=== PATIENT | male | born 1945 | race Caucasian/White ===

== ENCOUNTER 2022-06-04 18:33 | Inpatient (IN) | payer MEDICARE, SELFPAY ==
[2022-06-04] MEDS ORDERED: Piperacillin/Tazobactam 4.5 GM VIAL ONE (18:58)
[2022-06-04 19:18] LABS: #Lymphocytes 0.6 thou/uL (1.20-3.40); #Monocytes 0.8 thou/uL (0.11-0.59); %Basophils 0.1 % (0.0-1.0); %Eosinophils 0.1 % (0.0-10.0); %Lymphocytes 4.3 % (21.0-51.0); %Monocytes 5.3 % (0.0-10.0); %Neutrophils 90.2 % (42.0-75.0); Hemoglobin 16.7 g/dL (14.0-18.0); Mean Corpuscular HGB CONC 33.6 g/dL (32.0-36.0); Mean Corpuscular Hemoglobin 32.7 pg (27.0-31.0); Mean Corpuscular Volume 97.6 fL (78.0-98.0); RBC Distribution Width 14.4 % (11.5-14.5); Red Blood Cell (RBC) Count 5.11 mill/uL (4.70-6.10); White Blood Cell (WBC) Count 14.4 thou/uL (4.8-10.8)
[2022-06-04 19:28] LABS: ALT (SGPT) 18 U/L (8-55); AST (SGOT) 31 U/L (5-34); Albumin 4.4 g/dL (3.4-4.8); Alkaline Phosphatase 77 U/L (40-110); Anion Gap 19 mmol/L (10-20); BUN (Urea Nitrogen) 39 mg/dL (8.4-25.7); Bilirubin, Total 1.1 mg/dL (0.2-1.2); CK (CPK) 1022 U/L (30-200); Calc. Creatinine Clearance 0 mL/min (70-130); Calcium 10.2 mg/dL (7.8-10.44); Carbon Dioxide 18 mmol/L (23-31); Chloride 109 mmol/L (98-107); Estimated GFR 27; Globulin 3.4 g/dL (2.4-3.5); Glucose 177 mg/dL (83-110); Protein, Total 7.8 g/dL (5.8-8.1); Sodium 142 mmol/L (136-145)
[2022-06-04 19:34] LABS: MDiff Complete? YES; Mean Platelet Volume 9.4 fL (7.4-10.4); Platelet Count 98 thou/uL (130-400); Platelet Morphology Comment Appears Decreased; Polychromasia SLIGHT = 2-3 cells (100X) (0-2/hpf)
[2022-06-04 19:35] LABS: Bacteria/HPF None Seen HPF (None Seen); Bilirubin Negative (Negative); Blood, Urine Trace (Negative); Clarity Clear (Clear); Glucose, Urine (Dipstick) Normal (Negative); Ketone, Urine Negative (Negative); Leukocyte Negative Leu/uL (Negative); Nitrite Negative (Negative); Protein, Urine (Dipstick) 50 mg/dL (Neg-Trace); RBC/HPF 21-50 HPF (0-3); Specific Gravity, Urine 1.022 (1.002-1.036); Squamous Epithelial None Seen HPF (0-3); Urobilinogen Normal mg/dL (Less than 2); WBC/HPF 0-3 HPF (0-3); pH, Urine 5.5 (5.0-9.0)
[2022-06-04] MEDS ORDERED: Vancomycin 1 GM/200 ML BAG ONE (19:37)
[2022-06-04 19:56] LABS: CKMB 3.7 ng/mL (0-6.6)
[2022-06-04] MEDS ORDERED: Morphine 4 MG/ML VIAL ONE ×2 (20:30→20:38)
[2022-06-04 22:05] LABS: SARS-CoV-2 NAA Rapid Test Not Detected (NotDetected)
[2022-06-04] MEDS ORDERED: Dextrose 5% in Water 1,000 ML IV PRN (22:19)
[2022-06-04] MEDS ORDERED: Dextrose 50% Abboject 50 ML SYRINGE SLOW IVP PRN (22:19)
[2022-06-04 22:27] LABS: Lactic Acid 2.2 mmol/L (0.5-2.2)
[2022-06-04] MEDS ORDERED: HumaLOG 300 UNITS/3 ML VIAL SC PRN ×2 (22:28)
[2022-06-04] MEDS ORDERED: Vancomycin 1 GM in Premix Bag 1 BAG IVPB SCH (23:00)
[2022-06-04] MEDS: Lactated Ringer's 1,000 ML IV SCH (23:06)
[2022-06-04] MEDS: Morphine 4 MG/ML VIAL SLOW IVP PRN (23:09)
[2022-06-04 23:15] LABS: Hemoglobin A1c 5.4 % (4.0-6.0)
[2022-06-04 23:20] LABS: Cardiac Risk 3.2 (Less than 4.5)
[2022-06-04] MEDS ORDERED: Enoxaparin Sodium 120 MG/0.8 ML SYRINGE SC SCH (23:59)
[2022-06-05] MEDS: Piperacillin/Tazobactam 3.375 GM in Sodium Chloride 0.9% 100 ML IVPB SCH ×3 (00:48→17:15)
[2022-06-05 00:58] LABS: Creatinine, Urine 246.08 mg/dL (63-166)
[2022-06-05] MEDS: HYDROcodone/Acetaminophen 5/325 mg Tablet PO PRN ×3 (01:54→20:29)
[2022-06-05 03:31] LABS: Troponin I 1.755 ng/mL (< 0.028)
[2022-06-05 03:33] LABS: #Lymphocytes 1.1 thou/uL (1.20-3.40); %Eosinophils 0.2 % (0.0-10.0); %Monocytes 6.8 % (0.0-10.0); Hemoglobin 15.3 g/dL (14.0-18.0); Mean Corpuscular HGB CONC 33.8 g/dL (32.0-36.0); Mean Corpuscular Hemoglobin 32.7 pg (27.0-31.0); Mean Corpuscular Volume 96.9 fL (78.0-98.0); Mean Platelet Volume 9.4 fL (7.4-10.4); Platelet Count 81 thou/uL (130-400); RBC Distribution Width 14.2 % (11.5-14.5); Red Blood Cell (RBC) Count 4.67 mill/uL (4.70-6.10); White Blood Cell (WBC) Count 14.1 thou/uL (4.8-10.8)
[2022-06-05 03:46] LABS: Lactic Acid 1.7 mmol/L (0.5-2.2)
[2022-06-05 03:51] LABS: Anion Gap 17 mmol/L (10-20); BUN (Urea Nitrogen) 39 mg/dL (8.4-25.7); CK (CPK) 2367 U/L (30-200); Calc. Creatinine Clearance 51 mL/min (70-130); Calcium 9.3 mg/dL (7.8-10.44); Carbon Dioxide 20 mmol/L (23-31); Chloride 104 mmol/L (98-107); Estimated GFR 32; Glucose 149 mg/dL (83-110); Potassium 3.9 mmol/L (3.5-5.1); Sodium 137 mmol/L (136-145)
[2022-06-05] MEDS ORDERED: Acetaminophen 325 MG TAB ONE (05:48)
[2022-06-05] MEDS: Lactated Ringer's 1,000 ML IV SCH ×4 (05:53→20:30)
[2022-06-05] MEDS: Levothyroxine Sodium 100 MCG TAB PO SCH (05:54)
[2022-06-05 07:24] LABS: Critical Call Chem Troponin I RESULT DECREASING
[2022-06-05] MEDS ORDERED: Vancomycin 2 GM in Premix Bag 1 BAG IVPB SCH (08:00)
[2022-06-05] MEDS ORDERED: Enoxaparin Sodium 120 MG/0.8 ML SYRINGE SC SCH (09:00)
[2022-06-05] MEDS ORDERED: Clopidogrel Bisulfate 75 MG TAB PO SCH (09:00)
[2022-06-05] MEDS ORDERED: Enoxaparin Sodium 40 MG/0.4 ML SYRINGE SC SCH ×2 (09:00)
[2022-06-05] MEDS: Tamsulosin HCl 0.4 MG CAP PO SCH (09:32)
[2022-06-05] MEDS: Clopidogrel Bisulfate 75 MG TAB PO SCH (09:32)
[2022-06-05] MEDS: Aspirin Chewable 81 MG TAB PO SCH (09:32)
[2022-06-05] MEDS ORDERED: Silver Sulfadiazine 50 GM TUBE TOP SCH (10:29)
[2022-06-05] MEDS: Morphine 4 MG/ML VIAL SLOW IVP PRN (10:45)
[2022-06-05] MEDS ORDERED: Senokot 8.6 MG TAB PO PRN (18:53)
[2022-06-05] MEDS: Polyethylene Glycol 3350 17 GM Packet PO SCH (20:30)
[2022-06-05] MEDS ORDERED: VANCOMYCIN 1.25 GM/250 ML BAG 1.25 GM in Premix Bag 1 BAG IVPB SCH (21:00)
[2022-06-06] MEDS: Piperacillin/Tazobactam 3.375 GM in Sodium Chloride 0.9% 100 ML IVPB SCH ×3 (00:06→16:47)
[2022-06-06] MEDS: Lactated Ringer's 1,000 ML IV SCH ×2 (00:11→02:57)
[2022-06-06] MEDS: HYDROcodone/Acetaminophen 5/325 mg Tablet PO PRN (02:58)
[2022-06-06 05:44] LABS: ALT (SGPT) 26 U/L (8-55); AST (SGOT) 48 U/L (5-34); Albumin 3.3 g/dL (3.4-4.8); Alkaline Phosphatase 54 U/L (40-110); Anion Gap 12 mmol/L (10-20); BUN (Urea Nitrogen) 29 mg/dL (8.4-25.7); Bilirubin, Total 1.1 mg/dL (0.2-1.2); CK (CPK) 1053 U/L (30-200); Calc. Creatinine Clearance 71 mL/min (70-130); Calcium 8.8 mg/dL (7.8-10.44); Carbon Dioxide 25 mmol/L (23-31); Chloride 108 mmol/L (98-107); Estimated GFR 48; Globulin 2.7 g/dL (2.4-3.5); Glucose 105 mg/dL (83-110); Sodium 141 mmol/L (136-145)
[2022-06-06] MEDS: Levothyroxine Sodium 100 MCG TAB PO SCH (06:45)
[2022-06-06 06:59] LABS: #Eosinphils 0.1 thou/uL (0.0-0.7); #Lymphocytes 1.3 thou/uL (1.20-3.40); #Monocytes 0.7 thou/uL (0.11-0.59); #Neutrophils 8.6 thou/uL (1.40-6.50); %Basophils 0.4 % (0.0-1.0); %Eosinophils 1.1 % (0.0-10.0); %Lymphocytes 12.3 % (21.0-51.0); %Monocytes 6.6 % (0.0-10.0); %Neutrophils 79.6 % (42.0-75.0); Hemoglobin 14.4 g/dL (14.0-18.0); Mean Corpuscular HGB CONC 33.5 g/dL (32.0-36.0); Mean Corpuscular Volume 98.4 fL (78.0-98.0); Mean Platelet Volume 9.8 fL (7.4-10.4); Platelet Count 70 thou/uL (130-400); RBC Distribution Width 14.2 % (11.5-14.5); Red Blood Cell (RBC) Count 4.36 mill/uL (4.70-6.10); White Blood Cell (WBC) Count 10.8 thou/uL (4.8-10.8)
[2022-06-06] MEDS ORDERED: Lactated Ringer's 1,000 ML IV SCH (08:00)
[2022-06-06] MEDS ORDERED: Ondansetron ODT 4 MG TAB SL PRN (08:01)
[2022-06-06] MEDS ORDERED: Carvedilol 3.125 MG TAB PO SCH ×2 (09:00→09:15)
[2022-06-06] MEDS: Aspirin Chewable 81 MG TAB PO SCH (10:41)
[2022-06-06 10:42] LABS: PTT 38.7 sec (22.9-36.1)
[2022-06-06] MEDS: Tamsulosin HCl 0.4 MG CAP PO SCH (10:42)
[2022-06-06] MEDS: Clopidogrel Bisulfate 75 MG TAB PO SCH (10:42)
[2022-06-06] MEDS: Polyethylene Glycol 3350 17 GM Packet PO SCH ×2 (10:42→21:21)
[2022-06-06 10:43] LABS: INR-International Normal Ratio 1.1; Prothrombin Time 14.5 sec (12.0-14.7)
[2022-06-06] MEDS: Silver Sulfadiazine 50 GM JAR TP SCH (10:43)
[2022-06-06] MEDS: Carvedilol 3.125 MG TAB PO SCH (16:46)
[2022-06-06] MEDS: Atorvastatin Calcium 40 MG TAB PO SCH (21:19)
[2022-06-07 04:54] LABS: ALT (SGPT) 23 U/L (8-55); AST (SGOT) 28 U/L (5-34); Albumin 3.4 g/dL (3.4-4.8); Alkaline Phosphatase 52 U/L (40-110); Anion Gap 14 mmol/L (10-20); BUN (Urea Nitrogen) 21 mg/dL (8.4-25.7); Bilirubin, Total 0.8 mg/dL (0.2-1.2); CK (CPK) 353 U/L (30-200); Calc. Creatinine Clearance 83 mL/min (70-130); Calcium 9.2 mg/dL (7.8-10.44); Carbon Dioxide 23 mmol/L (23-31); Chloride 105 mmol/L (98-107); Estimated GFR 56; Glucose 106 mg/dL (83-110); Potassium 4.1 mmol/L (3.5-5.1); Protein, Total 6.4 g/dL (5.8-8.1); Sodium 138 mmol/L (136-145)
[2022-06-07] MEDS: Levothyroxine Sodium 100 MCG TAB PO SCH (04:57)
[2022-06-07 04:58] LABS: #Eosinphils 0.2 thou/uL (0.0-0.7); #Lymphocytes 1.4 thou/uL (1.20-3.40); #Monocytes 0.8 thou/uL (0.11-0.59); #Neutrophils 7.9 thou/uL (1.40-6.50); %Basophils 0.3 % (0.0-1.0); %Eosinophils 1.9 % (0.0-10.0); %Lymphocytes 13.2 % (21.0-51.0); %Monocytes 8.1 % (0.0-10.0); %Neutrophils 76.5 % (42.0-75.0); Hemoglobin 15.3 g/dL (14.0-18.0); Mean Corpuscular HGB CONC 32.7 g/dL (32.0-36.0); Mean Corpuscular Hemoglobin 32.4 pg (27.0-31.0); Mean Corpuscular Volume 99.3 fL (78.0-98.0); Mean Platelet Volume 9.9 fL (7.4-10.4); Platelet Count 78 thou/uL (130-400); RBC Distribution Width 14.3 % (11.5-14.5); Red Blood Cell (RBC) Count 4.73 mill/uL (4.70-6.10); White Blood Cell (WBC) Count 10.3 thou/uL (4.8-10.8)
[2022-06-07] MEDS ORDERED: Bisacodyl 10 MG SUPP PR PRN (08:09)
[2022-06-07 08:42] VITALS: BMI 38.7
[2022-06-07] MEDS: Clopidogrel Bisulfate 75 MG TAB PO SCH (09:26)
[2022-06-07] MEDS: Carvedilol 3.125 MG TAB PO SCH ×2 (09:26→18:28)
[2022-06-07] MEDS: Aspirin Chewable 81 MG TAB PO SCH (09:26)
[2022-06-07] MEDS: Tamsulosin HCl 0.4 MG CAP PO SCH (09:26)
[2022-06-07] MEDS: Polyethylene Glycol 3350 17 GM Packet PO SCH ×2 (09:27→20:41)
[2022-06-07] MEDS: Senokot S 8.6-50 MG TAB PO SCH ×2 (10:47→20:41)
[2022-06-07] MEDS: Silver Sulfadiazine 50 GM JAR TP SCH (10:48)
[2022-06-07 13:10] LABS: Bacteria/HPF None Seen HPF (None Seen); Bilirubin Negative (Negative); Blood, Urine 3+ (Negative); Clarity Clear (Clear); Glucose, Urine (Dipstick) Normal (Negative); Ketone, Urine Negative (Negative); Leukocyte Negative Leu/uL (Negative); Nitrite Negative (Negative); Protein, Urine (Dipstick) Negative (Neg-Trace); RBC/HPF 21-50 HPF (0-3); Specific Gravity, Urine 1.013 (1.002-1.036); Squamous Epithelial 0-3 HPF (0-3); WBC/HPF 0-3 HPF (0-3)
[2022-06-07] MEDS: Atorvastatin Calcium 40 MG TAB PO SCH (20:41)
[2022-06-08 05:01] LABS: #Eosinphils 0.2 thou/uL (0.0-0.7); #Lymphocytes 1.8 thou/uL (1.20-3.40); #Monocytes 0.8 thou/uL (0.11-0.59); #Neutrophils 6.4 thou/uL (1.40-6.50); %Basophils 0.4 % (0.0-1.0); %Eosinophils 2.4 % (0.0-10.0); %Lymphocytes 19.3 % (21.0-51.0); %Monocytes 9.1 % (0.0-10.0); %Neutrophils 68.9 % (42.0-75.0); Mean Corpuscular HGB CONC 32.1 g/dL (32.0-36.0); Mean Corpuscular Hemoglobin 31.8 pg (27.0-31.0); Mean Corpuscular Volume 99.2 fL (78.0-98.0); Mean Platelet Volume 9.7 fL (7.4-10.4); Platelet Count 84 thou/uL (130-400); RBC Distribution Width 14.4 % (11.5-14.5); Red Blood Cell (RBC) Count 4.72 mill/uL (4.70-6.10); White Blood Cell (WBC) Count 9.3 thou/uL (4.8-10.8)
[2022-06-08] MEDS: Levothyroxine Sodium 100 MCG TAB PO SCH (05:05)
[2022-06-08 05:16] LABS: ALT (SGPT) 37 U/L (8-55); AST (SGOT) 29 U/L (5-34); Albumin 3.4 g/dL (3.4-4.8); Alkaline Phosphatase 56 U/L (40-110); Anion Gap 13 mmol/L (10-20); BUN (Urea Nitrogen) 25 mg/dL (8.4-25.7); Bilirubin, Total 0.9 mg/dL (0.2-1.2); CK (CPK) 238 U/L (30-200); Calc. Creatinine Clearance 81 mL/min (70-130); Calcium 9.1 mg/dL (7.8-10.44); Carbon Dioxide 25 mmol/L (23-31); Chloride 105 mmol/L (98-107); Estimated GFR 54; Globulin 2.9 g/dL (2.4-3.5); Glucose 99 mg/dL (83-110); Protein, Total 6.3 g/dL (5.8-8.1); Sodium 139 mmol/L (136-145)
[2022-06-08] MEDS: Clopidogrel Bisulfate 75 MG TAB PO SCH (09:28)
[2022-06-08] MEDS: Aspirin Chewable 81 MG TAB PO SCH (09:29)
[2022-06-08] MEDS: Carvedilol 3.125 MG TAB PO SCH (09:29)
[2022-06-08] MEDS: Silver Sulfadiazine 50 GM JAR TP SCH (09:29)
[2022-06-08] MEDS: Polyethylene Glycol 3350 17 GM Packet PO SCH (09:29)
[2022-06-08] MEDS: Tamsulosin HCl 0.4 MG CAP PO SCH (09:29)
[2022-06-08 17:17] VITALS: BP 109/62; TEMP 97.7
== END 2022-06-08 17:40 | disposition home health service (06) | DRG 922 ==
LOC: ERS 18:33 → IMCU/EMU 20:38 → 2NO 06-06 21:07
PROVIDERS: ADMIT Family Medicine; ATTEND Family Medicine
DX: T67.01XA Heatstroke and sunstroke, initial encounter (principal); I21.A1 Myocardial infarction type 2; N17.9 Acute kidney failure, unspecified; M62.82 Rhabdomyolysis; E87.2 Acidosis; Z20.822 Contact with and (suspected) exposure to COVID-19; E78.5 Hyperlipidemia, unspecified; M10.9 Gout, unspecified; E03.9 Hypothyroidism, unspecified; I12.9 Hypertensive chronic kidney disease with stage 1 through stage 4 chronic kidney disease, or unspecified chronic kidney disease; E11.22 Type 2 diabetes mellitus with diabetic chronic kidney disease; D69.6 Thrombocytopenia, unspecified; T22.261A Burn of second degree of right scapular region, initial encounter; N18.31 Chronic kidney disease, stage 3a; T22.221A Burn of second degree of right elbow, initial encounter; Z79.82 Long term (current) use of aspirin; Z79.890 Hormone replacement therapy; Z79.899 Other long term (current) drug therapy; X30.XXXA Exposure to excessive natural heat, initial encounter
CPT/HCPCS: 36415; 36416; 51702; 70450; 71045; 76705; 80048; 80053; 80061; 80307; 81001; 81003; 81015; 82550; 82553; 82570; 83036; 83605; 83880; 84145; 84300; 84443; 84484; 85025; 85060; 85520; 85610; 85730; 87040; 87086; 93005; 93306; 93970; 94760; 96374; 96375; 97139; J1650; J2270; J2543; J3370; J3490; J7120; Q0162; U0002

== ENCOUNTER 2022-06-10 03:09 | Inpatient (IN) | payer MEDICARE ==
[2022-06-10 03:29] VITALS: BMI 38.1
[2022-06-10] MEDS ORDERED: Dextrose 5% in Water 1,000 ML IV PRN (04:33)
[2022-06-10] MEDS ORDERED: Dextrose 50% Abboject 50 ML SYRINGE SLOW IVP PRN (04:33)
[2022-06-10] MEDS ORDERED: HumaLOG 300 UNITS/3 ML VIAL SC PRN ×2 (04:33)
[2022-06-10 04:59] LABS: SARS-CoV-2 NAA Rapid Test DETECTED (NotDetected)
[2022-06-10] MEDS ORDERED: [UNRECOGNIZED DRUG - OTHER] TP PRN (05:16)
[2022-06-10] MEDS: Levothyroxine Sodium 100 MCG TAB PO SCH (06:26)
[2022-06-10] MEDS ORDERED: Cartilage/Collagen/Bor/Hyalur [Joint Health Tablet] PO SCH (09:00)
[2022-06-10] MEDS: Tamsulosin HCl 0.4 MG CAP PO SCH (10:43)
[2022-06-10] MEDS: Clopidogrel Bisulfate 75 MG TAB PO SCH (10:43)
[2022-06-10] MEDS: Aspirin Chewable 81 MG TAB PO SCH (10:43)
[2022-06-10] MEDS: Enoxaparin Sodium 40 MG/0.4 ML SYRINGE SC SCH (10:43)
[2022-06-10] MEDS: Carvedilol 3.125 MG TAB PO SCH ×2 (10:44→16:18)
[2022-06-10] MEDS: Silver Sulfadiazine 50 GM JAR TP SCH (10:44)
[2022-06-10] MEDS ORDERED: Benzonatate 100 MG CAP PO PRN (14:55)
[2022-06-10] MEDS: Acetaminophen 325 MG TAB PO PRN ×2 (16:18→20:21)
[2022-06-10] MEDS: Allopurinol 100 MG TAB PO SCH (20:21)
[2022-06-10] MEDS: Atorvastatin Calcium 40 MG TAB PO SCH (20:21)
[2022-06-10] MEDS: guaiFENesin ER 600 MG TAB PO SCH (23:07)
[2022-06-11] MEDS: Albuterol 200 PUFF (6.7GM INHALER) INH SCH ×6 (03:30→22:31)
[2022-06-11] MEDS ORDERED: Fluticasone Propionate Nasal Spray 16 gm Bottle NASAL SCH ×3 (04:00→09:00)
[2022-06-11] MEDS: Scopolamine 1.5 mg/72 hour Patch TD SCH (04:40)
[2022-06-11 05:36] LABS: #Lymphocytes 0.6 thou/uL (1.20-3.40); #Monocytes 0.8 thou/uL (0.11-0.59); #Neutrophils 6.2 thou/uL (1.40-6.50); %Eosinophils 0.2 % (0.0-10.0); %Lymphocytes 7.6 % (21.0-51.0); %Monocytes 10.6 % (0.0-10.0); %Neutrophils 81.6 % (42.0-75.0); Hemoglobin 15.2 g/dL (14.0-18.0); Mean Corpuscular HGB CONC 33.4 g/dL (32.0-36.0); Mean Corpuscular Hemoglobin 32.9 pg (27.0-31.0); Mean Corpuscular Volume 98.6 fL (78.0-98.0); Mean Platelet Volume 9.1 fL (7.4-10.4); Platelet Count 87 thou/uL (130-400); RBC Distribution Width 14.2 % (11.5-14.5); Red Blood Cell (RBC) Count 4.61 mill/uL (4.70-6.10); White Blood Cell (WBC) Count 7.6 thou/uL (4.8-10.8)
[2022-06-11 05:54] LABS: ALT (SGPT) 102 U/L (8-55); AST (SGOT) 52 U/L (5-34); Albumin 3.6 g/dL (3.4-4.8); Alkaline Phosphatase 62 U/L (40-110); Anion Gap 13 mmol/L (10-20); BUN (Urea Nitrogen) 23 mg/dL (8.4-25.7); Bilirubin, Total 0.7 mg/dL (0.2-1.2); Calc. Creatinine Clearance 86 mL/min (70-130); Calcium 9.1 mg/dL (7.8-10.44); Carbon Dioxide 25 mmol/L (23-31); Chloride 101 mmol/L (98-107); Estimated GFR 60; Globulin 3.2 g/dL (2.4-3.5); Glucose 115 mg/dL (83-110); Protein, Total 6.8 g/dL (5.8-8.1); Sodium 135 mmol/L (136-145)
[2022-06-11] MEDS: Levothyroxine Sodium 100 MCG TAB PO SCH (06:07)
[2022-06-11] MEDS: Enoxaparin Sodium 40 MG/0.4 ML SYRINGE SC SCH (09:32)
[2022-06-11] MEDS: Carvedilol 3.125 MG TAB PO SCH ×2 (09:33→20:03)
[2022-06-11] MEDS: Clopidogrel Bisulfate 75 MG TAB PO SCH (09:33)
[2022-06-11] MEDS: Tamsulosin HCl 0.4 MG CAP PO SCH (09:33)
[2022-06-11] MEDS: Acetaminophen 325 MG TAB PO PRN (09:33)
[2022-06-11] MEDS: Aspirin Chewable 81 MG TAB PO SCH (09:33)
[2022-06-11] MEDS: guaiFENesin ER 600 MG TAB PO SCH ×3 (09:34→20:04)
[2022-06-11] MEDS ORDERED: Dexamethasone 4 MG TAB PO SCH (10:45)
[2022-06-11] MEDS ORDERED: Pharmacy to Dose BARICITINIB IVPB PRN (10:45)
[2022-06-11] MEDS: Silver Sulfadiazine 50 GM JAR TP SCH (10:58)
[2022-06-11] MEDS ORDERED: Furosemide 20 MG/2 ML VIAL SLOW IVP SCH (11:15)
[2022-06-11] MEDS ORDERED: REMDESIVIR 200 MG in Sodium Chloride 0.9% 250 ML 210 ML IV SCH (12:00)
[2022-06-11] MEDS: Allopurinol 100 MG TAB PO SCH (20:03)
[2022-06-11] MEDS: Atorvastatin Calcium 40 MG TAB PO SCH (20:04)
[2022-06-12] MEDS: Albuterol 200 PUFF (6.7GM INHALER) INH SCH ×2 (02:52→06:10)
[2022-06-12] MEDS: Levothyroxine Sodium 100 MCG TAB PO SCH (06:10)
[2022-06-12 07:42] LABS: #Monocytes 0.5 thou/uL (0.11-0.59); #Neutrophils 3.9 thou/uL (1.40-6.50); %Basophils 0.1 % (0.0-1.0); %Eosinophils 0.3 % (0.0-10.0); %Lymphocytes 18.5 % (21.0-51.0); %Monocytes 8.9 % (0.0-10.0); %Neutrophils 72.2 % (42.0-75.0); Hemoglobin 15.4 g/dL (14.0-18.0); Mean Corpuscular HGB CONC 31.5 g/dL (32.0-36.0); Mean Corpuscular Hemoglobin 31.8 pg (27.0-31.0); Mean Platelet Volume 10.7 fL (7.4-10.4); Platelet Count 65 thou/uL (130-400); RBC Distribution Width 14.2 % (11.5-14.5); Red Blood Cell (RBC) Count 4.86 mill/uL (4.70-6.10); White Blood Cell (WBC) Count 5.4 thou/uL (4.8-10.8)
[2022-06-12 08:50] LABS: ALT (SGPT) 71 U/L (8-55); AST (SGOT) 57 U/L (5-34); Albumin 3.4 g/dL (3.4-4.8); Alkaline Phosphatase 53 U/L (40-110); Anion Gap 18 mmol/L (10-20); BUN (Urea Nitrogen) 30 mg/dL (8.4-25.7); Bilirubin, Total 0.4 mg/dL (0.2-1.2); Calc. Creatinine Clearance 81 mL/min (70-130); Calcium 9.1 mg/dL (7.8-10.44); Carbon Dioxide 22 mmol/L (23-31); Chloride 104 mmol/L (98-107); Estimated GFR 56; Globulin 4.2 g/dL (2.4-3.5); Glucose 97 mg/dL (83-110); Potassium 5.6 mmol/L (3.5-5.1); Protein, Total 7.6 g/dL (5.8-8.1); Sodium 138 mmol/L (136-145)
[2022-06-12] MEDS: guaiFENesin ER 600 MG TAB PO SCH ×2 (09:48→20:59)
[2022-06-12] MEDS: Clopidogrel Bisulfate 75 MG TAB PO SCH (09:48)
[2022-06-12] MEDS: Tamsulosin HCl 0.4 MG CAP PO SCH (09:49)
[2022-06-12] MEDS: Carvedilol 3.125 MG TAB PO SCH ×2 (09:49→17:26)
[2022-06-12] MEDS: Dexamethasone 4 MG TAB PO SCH (09:49)
[2022-06-12] MEDS: Enoxaparin Sodium 40 MG/0.4 ML SYRINGE SC SCH (09:49)
[2022-06-12] MEDS: Aspirin Chewable 81 MG TAB PO SCH (09:50)
[2022-06-12] MEDS: REMDESIVIR 100 MG in Sodium Chloride 0.9% 250 ML 230 ML IV SCH (09:50)
[2022-06-12] MEDS: Fluticasone Propionate Nasal Spray 16 gm Bottle NASAL SCH (09:50)
[2022-06-12] MEDS: Silver Sulfadiazine 50 GM JAR TP SCH (09:51)
[2022-06-12] MEDS: Atorvastatin Calcium 40 MG TAB PO SCH (20:59)
[2022-06-12] MEDS: Acetaminophen 325 MG TAB PO PRN (21:00)
[2022-06-12] MEDS: Allopurinol 100 MG TAB PO SCH (21:00)
[2022-06-13] MEDS: Acetaminophen 325 MG TAB PO PRN ×2 (01:24→22:05)
[2022-06-13] MEDS: Albuterol 200 PUFF (6.7GM INHALER) INH SCH ×7 (02:02→22:06)
[2022-06-13] MEDS: Levothyroxine Sodium 100 MCG TAB PO SCH (05:35)
[2022-06-13 05:56] LABS: #Lymphocytes 0.9 thou/uL (1.20-3.40); #Monocytes 0.6 thou/uL (0.11-0.59); #Neutrophils 4.2 thou/uL (1.40-6.50); %Basophils 0.2 % (0.0-1.0); %Eosinophils 0.6 % (0.0-10.0); %Lymphocytes 16.6 % (21.0-51.0); %Monocytes 9.6 % (0.0-10.0); Hemoglobin 14.6 g/dL (14.0-18.0); Mean Corpuscular HGB CONC 31.9 g/dL (32.0-36.0); Mean Corpuscular Hemoglobin 32.1 pg (27.0-31.0); Mean Platelet Volume 8.1 fL (7.4-10.4); Platelet Count 133 thou/uL (130-400); RBC Distribution Width 14.2 % (11.5-14.5); Red Blood Cell (RBC) Count 4.56 mill/uL (4.70-6.10); White Blood Cell (WBC) Count 5.7 thou/uL (4.8-10.8)
[2022-06-13 06:18] LABS: ALT (SGPT) 60 U/L (8-55); AST (SGOT) 28 U/L (5-34); Albumin 3.4 g/dL (3.4-4.8); Alkaline Phosphatase 58 U/L (40-110); Anion Gap 15 mmol/L (10-20); BUN (Urea Nitrogen) 33 mg/dL (8.4-25.7); Bilirubin, Total 0.4 mg/dL (0.2-1.2); Calc. Creatinine Clearance 82 mL/min (70-130); Calcium 9.2 mg/dL (7.8-10.44); Carbon Dioxide 25 mmol/L (23-31); Chloride 105 mmol/L (98-107); Estimated GFR 56; Globulin 3.2 g/dL (2.4-3.5); Glucose 100 mg/dL (83-110); Potassium 4.2 mmol/L (3.5-5.1); Protein, Total 6.6 g/dL (5.8-8.1); Sodium 141 mmol/L (136-145)
[2022-06-13] MEDS: Aspirin Chewable 81 MG TAB PO SCH (10:20)
[2022-06-13] MEDS: REMDESIVIR 100 MG in Sodium Chloride 0.9% 250 ML 230 ML IV SCH (10:20)
[2022-06-13] MEDS: Carvedilol 3.125 MG TAB PO SCH ×2 (10:20→18:02)
[2022-06-13] MEDS: Dexamethasone 4 MG TAB PO SCH (10:20)
[2022-06-13] MEDS: Tamsulosin HCl 0.4 MG CAP PO SCH (10:21)
[2022-06-13] MEDS: Enoxaparin Sodium 40 MG/0.4 ML SYRINGE SC SCH (10:21)
[2022-06-13] MEDS: Clopidogrel Bisulfate 75 MG TAB PO SCH (10:21)
[2022-06-13] MEDS: guaiFENesin ER 600 MG TAB PO SCH ×2 (10:21→22:06)
[2022-06-13] MEDS: Fluticasone Propionate Nasal Spray 16 gm Bottle NASAL SCH (10:21)
[2022-06-13] MEDS: Silver Sulfadiazine 50 GM JAR TP SCH (10:22)
[2022-06-13] MEDS: Allopurinol 100 MG TAB PO SCH (22:06)
[2022-06-13] MEDS: Atorvastatin Calcium 40 MG TAB PO SCH (22:06)
[2022-06-14] MEDS: Albuterol 200 PUFF (6.7GM INHALER) INH SCH ×6 (03:30→20:53)
[2022-06-14] MEDS: Acetaminophen 325 MG TAB PO PRN ×3 (05:45→20:58)
[2022-06-14] MEDS: Levothyroxine Sodium 100 MCG TAB PO SCH (05:45)
[2022-06-14] MEDS: Scopolamine 1.5 mg/72 hour Patch TD SCH (05:50)
[2022-06-14 07:03] LABS: ALT (SGPT) 50 U/L (8-55); AST (SGOT) 27 U/L (5-34); Albumin 3.6 g/dL (3.4-4.8); Alkaline Phosphatase 60 U/L (40-110); Anion Gap 15 mmol/L (10-20); BUN (Urea Nitrogen) 35 mg/dL (8.4-25.7); Bilirubin, Total 0.5 mg/dL (0.2-1.2); Calc. Creatinine Clearance 78 mL/min (70-130); Calcium 9.3 mg/dL (7.8-10.44); Carbon Dioxide 23 mmol/L (23-31); Chloride 105 mmol/L (98-107); Estimated GFR 53; Globulin 3.2 g/dL (2.4-3.5); Glucose 89 mg/dL (83-110); Potassium 4.2 mmol/L (3.5-5.1); Protein, Total 6.8 g/dL (5.8-8.1); Sodium 139 mmol/L (136-145)
[2022-06-14 07:17] LABS: #Eosinphils 0.1 thou/uL (0.0-0.7); #Lymphocytes 1.4 thou/uL (1.20-3.40); #Monocytes 0.6 thou/uL (0.11-0.59); #Neutrophils 4.6 thou/uL (1.40-6.50); %Basophils 0.3 % (0.0-1.0); %Lymphocytes 20.3 % (21.0-51.0); %Monocytes 9.3 % (0.0-10.0); %Neutrophils 69.2 % (42.0-75.0); Hemoglobin 15.4 g/dL (14.0-18.0); Mean Corpuscular HGB CONC 31.7 g/dL (32.0-36.0); Mean Corpuscular Hemoglobin 32.3 pg (27.0-31.0); Mean Platelet Volume 8.4 fL (7.4-10.4); Platelet Count 118 thou/uL (130-400); RBC Distribution Width 14.2 % (11.5-14.5); Red Blood Cell (RBC) Count 4.78 mill/uL (4.70-6.10); White Blood Cell (WBC) Count 6.7 thou/uL (4.8-10.8)
[2022-06-14 07:18] LABS: Platelet Morphology Comment Appears Decreased; RBC Morphology Normal
[2022-06-14] MEDS: Dexamethasone 4 MG TAB PO SCH (10:36)
[2022-06-14] MEDS: Aspirin Chewable 81 MG TAB PO SCH (10:38)
[2022-06-14] MEDS: Carvedilol 3.125 MG TAB PO SCH ×2 (10:38→18:37)
[2022-06-14] MEDS: Clopidogrel Bisulfate 75 MG TAB PO SCH (10:38)
[2022-06-14] MEDS: Tamsulosin HCl 0.4 MG CAP PO SCH (10:39)
[2022-06-14] MEDS: guaiFENesin ER 600 MG TAB PO SCH ×2 (10:39→20:51)
[2022-06-14] MEDS: Enoxaparin Sodium 40 MG/0.4 ML SYRINGE SC SCH (10:40)
[2022-06-14] MEDS: REMDESIVIR 100 MG in Sodium Chloride 0.9% 250 ML 230 ML IV SCH (10:41)
[2022-06-14] MEDS: Fluticasone Propionate Nasal Spray 16 gm Bottle NASAL SCH (10:50)
[2022-06-14] MEDS: Silver Sulfadiazine 50 GM JAR TP SCH (12:28)
[2022-06-14] MEDS: Allopurinol 100 MG TAB PO SCH (20:51)
[2022-06-14] MEDS: Atorvastatin Calcium 40 MG TAB PO SCH (20:51)
[2022-06-15] MEDS: Albuterol 200 PUFF (6.7GM INHALER) INH SCH ×4 (01:52→14:12)
[2022-06-15] MEDS: Levothyroxine Sodium 100 MCG TAB PO SCH (05:48)
[2022-06-15 06:07] LABS: #Basophils 0.1 thou/uL (0.0-0.2); #Lymphocytes 1.3 thou/uL (1.20-3.40); #Monocytes 0.6 thou/uL (0.11-0.59); #Neutrophils 6.7 thou/uL (1.40-6.50); %Basophils 1.6 % (0.0-1.0); %Eosinophils 0.4 % (0.0-10.0); %Lymphocytes 15.2 % (21.0-51.0); %Monocytes 6.2 % (0.0-10.0); %Neutrophils 76.6 % (42.0-75.0); Hemoglobin 15.5 g/dL (14.0-18.0); Mean Corpuscular HGB CONC 32.1 g/dL (32.0-36.0); Mean Corpuscular Volume 99.5 fL (78.0-98.0); Mean Platelet Volume 8.1 fL (7.4-10.4); Platelet Count 144 thou/uL (130-400); RBC Distribution Width 13.9 % (11.5-14.5); Red Blood Cell (RBC) Count 4.84 mill/uL (4.70-6.10); White Blood Cell (WBC) Count 8.8 thou/uL (4.8-10.8)
[2022-06-15 06:16] LABS: ALT (SGPT) 48 U/L (8-55); AST (SGOT) 28 U/L (5-34); Albumin 3.7 g/dL (3.4-4.8); Alkaline Phosphatase 60 U/L (40-110); Anion Gap 13 mmol/L (10-20); BUN (Urea Nitrogen) 40 mg/dL (8.4-25.7); Bilirubin, Total 0.4 mg/dL (0.2-1.2); Calc. Creatinine Clearance 81 mL/min (70-130); Calcium 9.5 mg/dL (7.8-10.44); Carbon Dioxide 27 mmol/L (23-31); Chloride 105 mmol/L (98-107); Estimated GFR 55; Globulin 3.3 g/dL (2.4-3.5); Glucose 93 mg/dL (83-110); Potassium 4.2 mmol/L (3.5-5.1); Sodium 141 mmol/L (136-145)
[2022-06-15] MEDS: REMDESIVIR 100 MG in Sodium Chloride 0.9% 250 ML 230 ML IV SCH (09:31)
[2022-06-15] MEDS: Enoxaparin Sodium 40 MG/0.4 ML SYRINGE SC SCH (09:31)
[2022-06-15] MEDS: Carvedilol 3.125 MG TAB PO SCH (09:32)
[2022-06-15] MEDS: Dexamethasone 4 MG TAB PO SCH (09:32)
[2022-06-15] MEDS: Clopidogrel Bisulfate 75 MG TAB PO SCH (09:32)
[2022-06-15] MEDS: Tamsulosin HCl 0.4 MG CAP PO SCH (09:33)
[2022-06-15] MEDS: guaiFENesin ER 600 MG TAB PO SCH (09:34)
[2022-06-15] MEDS: Aspirin Chewable 81 MG TAB PO SCH (09:34)
[2022-06-15] MEDS: Fluticasone Propionate Nasal Spray 16 gm Bottle NASAL SCH (09:36)
[2022-06-15 13:58] VITALS: BP 130/75; TEMP 97.6
== END 2022-06-15 15:30 | disposition swing bed (61) | DRG 177 ==
LOC: SURG B 03:11
PROVIDERS: ADMIT Student in an Organized Health Care Education/Training Program; ATTEND Student in an Organized Health Care Education/Training Program
PROC: 8E0ZXY6 Isolation (ICD-10-PCS; 2022-06-10)
PROC: XW033E5 Introduction of Remdesivir Anti-infective into Peripheral Vein, Percutaneous Approach, New Technology Group 5 (ICD-10-PCS; principal; 2022-06-11)
DX: U07.1 COVID-19 (principal); J96.01 Acute respiratory failure with hypoxia; J12.82 Pneumonia due to coronavirus disease 2019; J98.11 Atelectasis; E11.9 Type 2 diabetes mellitus without complications; I10 Essential (primary) hypertension; E78.5 Hyperlipidemia, unspecified; M10.9 Gout, unspecified; E03.9 Hypothyroidism, unspecified; R74.01 Elevation of levels of liver transaminase levels; K80.20 Calculus of gallbladder without cholecystitis without obstruction; N40.0 Benign prostatic hyperplasia without lower urinary tract symptoms; Z91.011 Allergy to milk products; Z79.82 Long term (current) use of aspirin; Z79.899 Other long term (current) drug therapy; Z79.890 Hormone replacement therapy; Z79.02 Long term (current) use of antithrombotics/antiplatelets
CPT/HCPCS: 36415; 36416; 71045; 76705; 80053; 85025; 86140; 97139; J0248; J1650; J1940; J7050; J8540; U0002